=== PATIENT | female | born 1990 | race African-American/Black ===

== ENCOUNTER 2021-01-16 13:10 | Emergency (ER) | payer SELFPAY ==
[~2021-01-16] VITALS: Ht 171.4 cm; Wt 96.8 kg
--- NOTE | 2021-01-16 15:10 | ED.ADGEN ---
Past Medical History Past Medical History: No Pertinent History Past Surgical History: Tubal ligation Smoking Status: Current Every Day Smoker Alcohol Use: None Social History Narrative: "K2" General Adult EDM: Chief Complaint: LOWER EXT PAIN HPI: HPI: Patient is a 30-year-old female presents to the emergency room complaining of bilateral lower extremity edema. Patient states that she noticed right lower extremity swelling earlier this week. She states that is progressively gotten worse. She woke up this morning and had left-sided lower extremity edema. She has never had any edema like this before. She denies any recent long travel. She denies any chest pain, shortness of breath, lightheadedness, recent illness. She denies any medical history. She states the only other thing that has been abnormal recently is she had a menstrual cycle that lasted about a month. She states that her legs feel tight and that she has pain when she walks on them. Pain resolves at rest. She denies any kind of fever. Review of Systems: Review of Systems: Complete ROS is negative unless otherwise documented in HPI Allergies: Allergies: Allergies Coded Allergies Type Severity Reaction Last Updated Verified No Known Drug Allergies 01/16/21 No Physical Exam: PE: General: Awake, alert, NAD. Well Nourished, well hydrated. Cooperative HEENT: Atraumatic, EOMI, PERRL, airway patent, moist oral mucosa Neck: Supple, trachea midline Respiratory: CTA bilaterally, normal effort, no wheezing/crackles CV: RRR, no murmur, cap refill <2 GI: Soft, nondistended, nontender, no masses MSK: Bilateral lower extremity: Nonpitting edema bilaterally worse on the right, 2+ DP pulses bilaterally, intact sensation, minimal erythema, no induration, no rash Skin: Warm, dry, intact Neuro: A&O x3, speech NL, sensory and motor grossly intact, no focal deficits Psych: Normal affect, normal mood, not suicidal or homicidal Current Patient Data: Labs: Laboratory Tests Test 01/16/21 14:52 01/16/21 16:52 Sodium Level 143 mmol/L (136-145) Potassium Level 4.0 mmol/L (3.5-5.1) Chloride Level 106 mmol/L (98-107) Carbon Dioxide Level 30 mmol/L (21-32) Anion Gap 7 (6-14) Blood Urea Nitrogen 10 mg/dL (7-20) Creatinine 0.8 mg/dL (0.6-1.0) Estimated GFR (Cockcroft-Gault) 100.6 Glucose Level 91 mg/dL (70-99) Calcium Level 9.1 mg/dL (8.5-10.1) C-Reactive Protein, Quantitative 23.9 mg/L (0-3.3) H AY-Pwk-H-Type Natriuretic Peptide 7 pg/mL (0-124) Thyroid Stimulating Hormone (TSH) 0.369 uIU/mL (0.358-3.74) POC Urine HCG, Qualitative Hcg negative (Negative) Laboratory Tests 01/16/21 14:52 Vital Signs: Vital Signs Date Time Temp Pulse Resp B/P (MAP) Pulse Ox O2 Delivery O2 Flow Rate FiO2 01/16/21 13:42 97.6 96 16 160/97 (118) 98 Room Air 97.6 EKG: EKG: [] Heart Score: C/O Chest Pain: N/A Risk Factors: Risk Factors: DM, Current or recent (<one month) smoker, HTN, HLP, family history of CAD, obesity. Risk Scores: Score 0 - 3: 2.5% MACE over next 6 weeks - Discharge Home Score 4 - 6: 20.3% MACE over next 6 weeks - Admit for Clinical Observation Score 7 - 10: 72.7% MACE over next 6 weeks - Early Invasive Strategies Radiology/Procedures: Radiology/Procedures: [] Course & Med Decision Making: Course & Med Decision Making Pertinent Labs and Imaging studies reviewed. (See chart for details) Patient is a 30-year-old female who presents to the emergency room complaining of nonpitting bilateral edema. This initially started on the right. Patient does not have any symptoms of a pulmonary embolism. Ultrasound will be ordered to evaluate for DVT. Work-up will be ordered to rule out acute kidney injury, congestive heart failure, liver failure, hypothyroidism. Work-up is unremarkable. Patient will be given a single dose of Lasix and placed in comp ression stockings. We discussed elevation. Patient's test results and vitals while in the ED were fully reviewed and discussed with the patient. Patient is stable and at this time does not need admission to the hospital. We have discussed strict return precautions and the importance of following up with their Primary Care Physician. Patient stated understanding and was given an opportunity to ask any questions. Patient is in agreement with plan. Dragon Disclaimer: Dragon Disclaimer: This electronic medical record was generated, in whole or in part, using a voice recognition dictation system. Departure Departure Impression: Primary Impression: Dependent edema Disposition: 01 HOME / SELF CARE / HOMELESS Condition: STABLE Referrals: NO PCP (PCP) Patient Instructions: Peripheral Edema MINAL DAS MD January 16, 2021 15:10
[2021-01-16 15:19] LABS: CALCIUM 9.1 mg/dL (8.5-10.1); CREATININE 0.8 mg/dL (0.6-1.0); GFR 100.6
[2021-01-16 15:20] LABS: C-REACTIVE PROTEIN 23.9 mg/L (0-3.3)
--- NOTE | 2021-01-16 16:56 | RAD ---
Site ID: [id number] EXAMINATION: Bilateral lower extremity duplex venous ultrasound. TECHNIQUE: DVT protocol. Multiple sonographic images with color Doppler and waveform interrogation we re performed of the lower extremity veins, bilaterally, with compression and augmentation maneuvers. INDICATION: 30 years Female Reason: leg swelling / Spl. Instructions: / History: . . Bilateral leg pain. FINDINGS: The lower extremity veins from the common femoral veins to below the knee veins were examin ed with normal color-flow, compressibility and normal waveform demonstrated. The great saphenous vein s visualized portion proximally are patent. IMPRESSION: No evidence of DVT in either lower extremity. Electronically signed by: Severino Freeman MD (01/16/2021 4:53 PM) [id number]
[2021-01-16 17:00] LABS: BILIRUBIN,URINE NEGATIVE (NEG); CLARITY,URINE CLEAR; COLOR,URINE YELLOW; NITRITE,URINE NEGATIVE (NEG); PH,URINE 7.5 (<5.0-8.0); PROTEIN,URINE NEGATIVE (NEG-TRACE)
[2021-01-16 17:15] LABS: BACTERIA,URINE FEW /HPF (0-FEW); RBC,URINE 0 /HPF (0-2)
[2021-01-16] MEDS ORDERED: FUROSEMIDE 40 MG TABLET. PO ONE (17:15)
[2021-01-16 18:12] VITALS: BP 150/98
== END 2021-01-16 18:20 | disposition home or self-care (01) ==
LOC: ER 13:10
DX: R60.0 Localized edema (principal); F17.200 Nicotine dependence, unspecified, uncomplicated
CPT/HCPCS: 36415; 80048; 81001; 81025; 83880; 84443; 86140; 93970; 99284-25